=== PATIENT | female | born 1970 | race Caucasian/White ===

== ENCOUNTER 2025-01-04 23:18 | Emergency (ER) | payer SELFPAY ==
[~2025-01-04] VITALS: Ht 162.6 cm; Wt 63.0 kg
[2025-01-05 00:04] VITALS: O2SAT 99
[2025-01-05] MEDS: ASPIRIN 81MG TABLET PO ONE (03:32)
[2025-01-05] MEDS: NITROGLYCERIN 0.4MG TABLET SL SL ONE (03:33)
[2025-01-05 03:34] LABS: DIFFERENTIAL COMMENT 0; EOSINOPHILS % 4.4 % (0.0-5.0); HEMATOCRIT. 32.8 % (36.0-48.0); HEMOGLOBIN. 10.3 g/dL (12.0-16.0); LYMPHOCYTES % 27.3 % (20.0-50.0); MEAN CORPUSCULAR HEMOGLOBIN 22.3 pg (28.0-32.0); MEAN CORPUSCULAR HGB CONC 31.5 g/dL (31.0-37.0); MEAN CORPUSCULAR VOLUME 70.8 fL (81.0-99.0); MEAN PLATELET VOLUME 8.4 fl (7.4-10.4); MONOCYTES % 9.7 % (2.0-8.0); NEUTROPHILS % 57.6 % (40.0-76.0); PLATELET 284 x1000/uL (130-400); RED BLOOD CELL COUNT 4.63 mill/uL (4.2-5.4)
[2025-01-05 03:48] LABS: CARBON DIOXIDE 24 mEq/L (21-32); CHLORIDE 101 mEq/L (98-107); POTASSIUM 3.8 mEq/L (3.5-5.1); SODIUM 134 mEq/L (136-145)
[2025-01-05 03:49] LABS: CALCIUM 9.9 mg/dL (8.7-10.4)
[2025-01-05 03:53] LABS: D-DIMER 0.24 mg/L FEU (<0.50); INR 0.9; PARTIAL THROMBOPLASTIN TIME 23.6 sec (23.4-31.0); PROTHROMBIN TIME 9.8 sec (9.6-11.0)
[2025-01-05 03:54] LABS: CREATININE 0.7 mg/dL (0.6-1.0); GLUCOSE 299 mg/dL (70-105); UREA NITROGEN BLOOD 12 mg/dL (9-23)
[2025-01-05 03:55] LABS: ALANINE AMINOTRANSFERASE 11 IU/L (10-49); ALBUMIN 4.5 g/dL (3.2-4.8); ASPARTATE AMINOTRANSFERASE 13 IU/L (<34)
[2025-01-05 03:56] LABS: BILIRUBIN DIRECT 0.1 mg/dL (<=3.0); BILIRUBIN TOTAL 0.5 mg/dL (0.1-1.0); PROTEIN TOTAL 7.5 g/dL (6.0-8.3)
[2025-01-05 04:20] LABS: TROPONIN I HIGH SENSITIVITY < 4 ng/L (3.0-34)
[2025-01-05 05:14] VITALS: BP 130/86; PULSE 110; RESP 20; TEMP 36.9; O2SAT 99
== END 2025-01-05 05:16 | disposition home or self-care (01) ==
LOC: ER 23:18
DX: N64.4 Mastodynia (principal); E11.65 Type 2 diabetes mellitus with hyperglycemia; I10 Essential (primary) hypertension; N63.10 Unspecified lump in the right breast, unspecified quadrant; N63.20 Unspecified lump in the left breast, unspecified quadrant; Z90.49 Acquired absence of other specified parts of digestive tract; Z79.899 Other long term (current) drug therapy; Z98.890 Other specified postprocedural states
CPT/HCPCS: 99285; 80076; 80048; 83880; 85025; 85379; 85610; 85730; 84484; 36415; 71045; 93005; Z7610